=== PATIENT | female | born 1960 | race Caucasian/White ===

== ENCOUNTER → 2022-02-13 00:45 | Outpatient (CLI) | payer BC, SELFPAY ==
[2022-02-13 12:32] LABS: SARS-CoV-2 RNA PCR Negative
== END ==
PROVIDERS: PCP Internal Medicine; Visit Provider Obstetrics & Gynecology
DX: Z01.812 Encounter for preprocedural laboratory examination (principal); Z20.822 Contact with and (suspected) exposure to COVID-19
CPT/HCPCS: C9803; U0003; U0005

== ENCOUNTER 2022-02-14 08:17 | Outpatient (CLI) | payer BC, SELFPAY ==
--- NOTE | 2022-02-14 08:28 | ECG_ITS ---
Measurements Intervals [place] Rate: 80 P: 68 CO: 128 QRS: 65 QRSD: 90 T: -2 QT: 353 QTc: 407 Interpretive Statements SINUS RHYTHM BASELINE ARTIFACT BORDERLINE ECG NONSPECIFIC T-WAVE ABNORMALITY NO PREVIOUS ECG AVAILABLE FOR COMPARISON Electronically Signed On 02-14-2022 17:56:10 CDT by Max Perez M.D.
[2022-02-14 08:53] LABS: Basophils Absolute Auto 0.1 K/mm3 (0.0-0.1); Basophils Percent Auto 0.7 % (0.2-1.2); Eosinophils Absolute Auto 0.1 K/mm3 (0-0.3); Eosinophils Percent Auto 1.6 % (0-4.4); Hemoglobin 13.8 g/dL (12.0-15.0); Immature Granulocyte Absolute 0.02 K/mm3 (0.00-0.031); Immature Granulocyte Percent A 0.3 % (0-0.5); Lymphocytes Absolute Auto 1.82 K/mm3 (0.9-3.2); Lymphocytes Percent Auto 24.4 % (18.3-44.2); Mean Corpuscular HGB Conc 32.9 g/dl (32-36); Mean Corpuscular Hemoglobin 32.5 pg (26-34); Mean Corpuscular Volume 99.1 fl (80-100); Mean Platelet Volume 9.3 fl (7.4-10.4); Monocytes Absolute Auto 0.4 K/mm3 (0.1-0.6); Monocytes Percent Auto 4.7 % (2.6-8.5); Neutrophils Absolute Auto 5.1 K/mm3 (1.3-6.7); Neutrophils Percent Auto 68.3 % (45.5-73.1); Platelet Count Result 300 k/mm3 (150-375); Red Blood Count 4.24 M/mm3 (4.2-5.4); Red Cell Distribution Width 12.5 % (11.5-14.5); White Blood Count 7.5 K/mm3 (4.5-10.0)
== END 2022-02-14 08:18 | disposition home or self-care (01) ==
PROVIDERS: PCP Internal Medicine; Visit Provider Obstetrics & Gynecology
DX: N81.6 Rectocele (principal); E78.00 Pure hypercholesterolemia, unspecified
CPT/HCPCS: 36415; 85025; 86850; 86900; 86901; 93005

== ENCOUNTER 2022-02-16 01:15 | Day surgery (SDC) | payer BC, SELFPAY ==
[2022-02-13 15:19] VITALS: BMI 24.5
--- NOTE | 2022-02-13 16:00 | PC.NURSE ---
Report to the Outpatient Waiting Room, entrance under the green pavilion located off [facility], at 0600 on 02-16-22. OR Time: 0730. - You and your visitor will be asked a series of questions to screen for COVID 19 for your protection. - A mask is required within the hospital. Preoperative COVID Testing Requirements: No COVID Test needed if: (proof is required; if not received patient will have Rapid Test prior to entry) - Patient has received COVID Vaccine at least 14 days prior to procedure date or - Patient has positive COVID test result within last 90 days of surgery date. COVID Test needed if above criteria is not met If not COVID vaccinated a COVID test must be conducted within 72 hours of surgery and patient is asked to isolate self from time of testing until procedure. You will go to the [facility] for your COVID testing. The [facility] is located at the corner of [address] [facility]. You will only be called if COVID results are positive and your surgeon may reschedule your elective surgery date. 02-13-22 @ 0830 Patients may have clear liquids (water, carbonated beverages, clear teas, apple juice) until 3 hours prior to surgery with a maximum of 20 ounces. 0430 - No food from midnight until time of surgery - Infants may have breast milk until 4 hours before surgery, formula 6 hours prior to surgery. - Children will be allowed to drink immediately following surgery. If applicable, please bring a bottle or sippy cup to assist with drinking. Juice, water, soda, and popsicles are readily available. For infants on formula, please bring formula the day of surgery. Pacifiers are allowed. Take the following medications with a SIP of water the morning of surgery: Tylenol if needed; alprazolam if needed Medications to discontinue per physician: Vitamins and supplements; ibuprofen Date to take last dose: 02-14-22; per Dr. Suh Please no make-up, nail tunisian, hairspray, perfume, deodorant, or body powder the day of surgery. No jewelry (including any body piercings) or valuables the day of surgery, leave them at home. Please take a shower or bath the night before, or the morning of, surgery with an antibacterial soap. Wear comfortable, loose fitting clothing. Children are encouraged to wear pajamas. - Jewelry must be removed prior to entering the operating room. Rings and piercings that are not removed may be cut off. - The hospital will not accept responsibility for valuables. - Please leave all valuables, including medications, at home the day of surgery. If you are going home after surgery, a licensed passenger coach driver must drive you home. - NO public transportation without another adult. - We recommend that an adult stay with you for 24 hours following discharge. - We also recommend that you do not drive, make important decision, drink alcoholic beverages, or take any drugs that were not prescribed by your health care provider for at least 24 hours after your discharge time. For Pediatric surgeries, we recommend two adults accompany the child home (only one inside the building at this time). One visitor will be allowed to accompany the patient into the hospital. Patients visitor will be instructed to remain with patient at all times or leave the building. We will allow the visitor to come back to the postoperative area when patient is ready. Follow any additional instructions given to you from your surgeon. Telephone instructions given to Erica Michelle and asked if any additional questions and then verbalized understanding. Patient advised to call surgeon office or pre surgery nurse liaison [phone] if any additional questions.
--- NOTE | 2022-02-14 07:51 | PM.IMHP ---
H&P: HPI History of Present Illness Date/Time: 02/14/22 07:51 [age] year female status post hysterectomy for repair of rectocele. She felt a tearing sensation and has used fingers as splinting to bowel movements. Risks and benefits of this procedure reviewed in great detail. She had all questions answered asked to proceed Chief Complaint: Symptomatic rectocele Review of Systems Review of Systems: All systems reviewed & are unremarkable except as noted in HPI and below PMFSH Social History Social History Smoking packs per day: 0.75 Smoking cigarettes per day: 15.0 Years smoked: 20 Smoking pack-years: 15.00 Smoking status: Current every day smoker Tobacco type: cigarettes Second hand tobacco smoke exposure: No Alcohol intake: current Alcohol use details: beer occassionally/socially Substance use: former Substance use type: marijuana Spiritual care concerns: No Meds Home Medications and Allergies Home Medications Medication Instructions Recorded Confirmed Type acetaminophen [Tylenol] 650 mg PO Q6H PRN 02/13/22 02/13/22 History alprazolam 0.25 mg PO DAILY PRN 02/13/22 02/13/22 History ascorbic acid (vitamin C) 500 mg PO DAILY 02/13/22 02/13/22 History atorvastatin 10 mg PO HS 02/13/22 02/13/22 History cholecalciferol (vitamin D3) 125 mcg PO DAILY 02/13/22 02/13/22 History [Vitamin D3] ibuprofen 400 mg PO Q6H PRN 02/13/22 02/13/22 History gt-em-cxgo-FA-Ca carb-vit K 1 tablet PO DAILY 02/13/22 02/13/22 History [Women's Multivitamin] Allergies Allergy/AdvReac Type Severity Reaction Status Date / Time strawberry Allergy Intermediate Hives Verified 02/13/22 15:09 potato chips Allergy Intermediate Other Uncoded 02/13/22 15:09 Exam Const: General: no acute distress Eyes: General: appearance normal, both eyes and all related structures Neck: Neck: supple and no JVD Thyroid: thyroid normal Resp: Effort & Inspection: normal respiratory effort Auscultation: clear to auscultation bilaterally Cardio: Rate: regular rate Rhythm: regular rhythm GI: Inspection: non-distended GI Palp: Yes Soft to palpation, No Tenderness to palpation present (GI) and No Guarding due to palpation present (GI) Auscultation: normal bowel sounds : External Female Exam: normal external appearance Speculum Exam - Vagina: normal appearance of the vagina (Grade 2 rectocele noted) Speculum Exam - Cervix: Cervix absent Bimanual exam- vagina & uterus: uterus absent Bimanual Exam- Adnexa, other: normal adnexae Skin: General skin exam: no rashes or lesions noted Extrem: General: normal to inspection and no edema Psych: Mental Status: mental status grossly normal Affect: normal affect Assessment and Plan Additional Plan Impression: Rectocele Plan rectocele repair with posterior colporrhaphy
--- NOTE | 2022-02-15 11:37 | WPDANESEPPF ---
Anes - Initial Pre Proc Eval Procedure: Operation Date: 02/16/22 07:30 Proposed Procedures p Rectocele Repair - Jack Bernard MD Date/Time: 02/15/22 11:37 Surgeon: Jack Bernard MD Pre Op Diagnosis: rectocele Patient Data Age: 61 Gender: F Height: 1.57 m Weight: 60.78 kg Allergies Allergy/AdvReac Type Severity Reaction Status Date / Time strawberry Allergy Intermediate Hives Verified 02/16/22 06:27 potato chips Allergy Intermediate Other Uncoded 02/16/22 06:27 Home Medications Medication Instructions Recorded Confirmed Type acetaminophen [Tylenol] 650 mg PO Q6H PRN 02/13/22 02/16/22 History alprazolam 0.25 mg PO DAILY PRN 02/13/22 02/16/22 History ascorbic acid (vitamin C) 500 mg PO DAILY 02/13/22 02/16/22 History atorvastatin 10 mg PO HS 02/13/22 02/16/22 History cholecalciferol (vitamin D3) 125 mcg PO DAILY 02/13/22 02/16/22 History [Vitamin D3] ibuprofen 400 mg PO Q6H PRN 02/13/22 02/16/22 History ka-vz-ekry-FA-Ca carb-vit K 1 tablet PO DAILY 02/13/22 02/16/22 History [Women's Multivitamin] Patient hx anesthesia problems: none Family hx anesthesia problems: none Results Review: All pre-operative results and documents have been reviewed as part of the pre-operative evaluation. [facility] Past Medical History Medical History (Updated 02/15/22 @ 11:38 by Chalino Awad DO) Anxiety Endometriosis Hyperlipidemia Surgical History Surgical History (Updated 02/15/22 @ 11:38 by Chalino Awad DO) History of hysterectomy Social History Social History (Updated 02/16/22 @ 06:59 by Chalino Awad DO) Smoking packs per day: 0.75 Smoking cigarettes per day: 15.0 Years smoked: 40 Smoking pack-years: 30.00 Smoking status: Current every day smoker Tobacco type: cigarettes Second hand tobacco smoke exposure: No Alcohol intake: current Alcohol use details: beer occassionally/socially Substance use: former Substance use type: marijuana Living arrangements: with family Spiritual care concerns: No Anes - Eval Final PreProcedure Day of Procedure 02/15/22 11:37 Patient weight: normal Heart: regular rate and rhythm Lungs: clear to auscultation and normal air movement Airway: Mallampati scale class II Neurological: alert and oriented Last oral intake: >/= 8 hours ASA classification: III Emergent: no Anesthetic plan: proceed Anesthesia type and monitoring: general LMA and standard monitoring Results Review: All pre-operative results and documents have been reviewed as part of the pre-operative evaluation. Informed Consent: The patient's anesthetic plan and its attendant risks and benefits were discussed with the patient/family/POA. Questions were solicited and answers provided to the satisfaction of the patient/family/POA.
[2022-02-16] VITALS (9 sets, daily range): BP systolic 97–118; BP diastolic 54–75; PULSE 65–85; RESP 12–16; TEMP 36.2–36.5; O2SAT 97–100
[2022-02-16] MEDS: ACETAMINOPHEN 500 MG TABLET 1000 MG PO (06:33)
[2022-02-16] MEDS: LACTATED RINGERS 1,000 ML 30 ML IV CONT ×2 (06:57→08:54)
[2022-02-16] MEDS: KETOROLAC 15 MG/ML VIAL (*BKC) IV PUSH (06:57)
--- NOTE | 2022-02-16 07:18 | WPDHPUPDATE1 ---
History and Physical Update Update Date/Time: 02/16/22 07:18 History and Physical has been reviewed, including an updated exam of the patient. There are NO changes in the patient's condition. Risks, benefits, and alternatives have been discussed and questions answered. Patient agrees to proceed with procedure.
[2022-02-16] MEDS: ceFAZolin 2 GM/D5W 50 ML 2 GM/50 ML BAG IVPB (07:30)
--- NOTE | 2022-02-16 08:25 | W.PM.PROC2 ---
Procedure Note - Detailed Date of Procedure 02/16/22 Pre-op Diagnosis rectocele Post-op Diagnosis Same Procedure Performed Posterior repair Surgeon Jack Bernard MD Anesthesia General Findings 61 symptomatic rectocele Description of Procedure The patient was prepped draped sterile fashion placed dorsal lithotomy position. Under excellent LMA the perineum was grasped with 2 clamps. A linear incision was made in the perineum and the mucosa was undermined and sharply dissected up to top of the rectocele. There were many areas of vascularity the made for a bloody or that useful procedure however these were serially clamped burned and the lateral muscles were reached by sharp blunt dissection and reaching back and until to the top of the mucosal edema incision. Ruvwuy-ui-xhooi sutures were then placed in the muscles laterally and brought over the top of the bulging rectum. This was done from top to bottom in figure-eight fashion. The excess tissue was trimmed and the vagina closed with continuous running 0 Vicryl from superior to inferior portion strengthening the perineum the. Blood loss was estimated [id number]. The vagina was packed as it was the bloodier than normal of procedure although all pedicles appeared dry at the time of termination the procedure to procedure. All sponge needle instrument counts were correct. There were no complications Estimated Blood Loss 300 Drains No Packing Yes Pathology Yes Complications No immediate complications Condition Stable Disposition PACU
[2022-02-16] MEDS: fentaNYL CITRATE INJ (*CRX) 100 MCG/2 ML VIAL 25 MCG IV PUSH ×4 (08:53→09:09)
== END 2022-02-16 10:30 | disposition home or self-care (01) ==
PROVIDERS: PCP Internal Medicine; Visit Provider Obstetrics & Gynecology
PROC: (CPT 57260; principal; 2022-02-16 07:30)
DX: N81.6 Rectocele (principal); E78.5 Hyperlipidemia, unspecified; F41.9 Anxiety disorder, unspecified; F17.210 Nicotine dependence, cigarettes, uncomplicated
CPT/HCPCS: 57250; A9270; J0690; J1100; J1885; J2250; J2405; J2704; J3010; J7120

== ENCOUNTER 2022-06-27 06:44 | Outpatient (CLI) | payer BC, SELFPAY ==
--- NOTE | ~2022-06-27 | MR_ITS ---
EXAMINATION: MR abdomen wo/w con DATE: 06/27/2022 07:50 INDICATION: Adrenal mass TECHNIQUE: Magnetic resonance imaging (MRI) of the abdomen was performed without and with 12 mL Multi hilary intravenous contrast. Sequences included coronal and axial T2-weighted SS-FSE, axial FS 2D-FIES TA, coronal and axial dual-echo T1-weighted FSPGR, axial T1-weighted LAVA, and axial STIR FSE. Postco ntrast axial T1-weighted LAVA images were obtained in a time course. Postcontrast coronal T1-weighted LAVA images were obtained. COMPARISON: CT dated 08/13/2019 FINDINGS: This is normal. No pericardial or pleural effusion. 9 mm nonenhancing T2 hyperintense cyst in segment 2 of the liver. Also in segment 2 is a 1.3 cm T2 hyperintense hemangioma with characteristic lobular margins and peripheral discontiguous puddling of contrast which fills in on delayed imaging. Depende ntly layering sludge in the normal gallbladder. Unchanged small splenule anterior to the normal splee n. Pancreas, right kidney and left adrenal gland are normal. No interval change in size of a 5.6 x 4. 5 cm low signal intensity nonenhancing lesion in the region of the right adrenal gland corresponding to the calcified mass on prior CT. There are couple smaller T2 hyperintense nonenhancing cysts at the periphery of the mass, the larger measuring 1.8 x 0.8 cm and the smaller measuring 1.2 x 0.6 cm, bot h also with some associated rim calcification on prior CT. T2 hyperintense nonenhancing left renal cy sts, the largest measuring 2.8 cm with 3 additional subcentimeter cysts. Visualized portion of the magalie wels are unremarkable. No pathologically enlarged abdominal lymphadenopathy. Moderate lumbar spondylo sis. IMPRESSION: 1. No change in a likely benign 5.6 cm calcified right adrenal mass and a couple small rim calcified cysts at the periphery of the mass which likely represent sequela of old hematoma or less likely infe ction. 2. No significant change in the previously described indeterminate lesion in segment 2 of liver with MRI enhancement pattern diagnostic of hemangioma. Reviewed, dictated and finalized at location A. IMPRESSION: 1. No change in a likely benign 5.6 cm calcified right adrenal mass and a coupl e small rim calcified cysts at the periphery of the mass which likely represent sequela of old hematoma or less likely infection. 2. No significant change in the previously described indeterminate lesion in se gment 2 of liver with MRI enhancement pattern diagnostic of hemangioma.
== END 2022-06-27 06:45 | disposition home or self-care (01) ==
PROVIDERS: PCP Internal Medicine; Visit Provider Internal Medicine
DX: R19.09 Other intra-abdominal and pelvic swelling, mass and lump (principal)
CPT/HCPCS: 74183; A9577

== ENCOUNTER 2023-10-09 00:58 | Day surgery (SDC) | payer BC, SELFPAY ==
[2023-10-07 15:18] VITALS: BMI 26.4
--- NOTE | 2023-10-07 15:50 | PC.NURSE ---
Report to the Outpatient Waiting Room, entrance under the green pavilion located off [facility], at 0730 on 10-09-23. Planned Procedure Time: 0930. Time changes happen often and if your time is changed the preop area will call you the afternoon before. - You and your visitor will be asked to self-screen and do not enter if you have any COVID symptoms. - A mask is optional within the hospital at this time. Patients may have clear liquids (water, carbonated beverages, clear teas, apple juice) until 3 hours prior to surgery with a maximum of 20 ounces. 0630 - No food from midnight until time of surgery - Infants may have breast milk until 4 hours before surgery, formula 6 hours prior to surgery. - Children will be allowed to drink immediately following surgery. If applicable, please bring a bottle or sippy cup to assist with drinking. Juice, water, soda, and popsicles are readily available. For infants on formula, please bring formula the day of surgery. Pacifiers are allowed. Take the following medications with a SIP of water the morning of surgery: alprazolam and tylenol if needed DO NOT STOP ANY OF YOUR OTHER PRESCRIPTION MEDICATIONS PRIOR TO SURGERY EXCEPT THE FOLLOWING Medications to discontinue per physician: vitamins and supplements Date to take last dose: 10-07-23 Please no make-up, nail somali, hairspray, perfume, deodorant, or body powder the day of surgery. No jewelry (including any body piercings) or valuables the day of surgery, leave them at home. Please take a shower or bath the night before, or the morning of, surgery with an antibacterial soap. Wear comfortable, loose fitting clothing. Children are encouraged to wear pajamas. - Jewelry must be removed prior to entering the operating room. Rings and piercings that are not removed may be cut off. - The hospital will not accept responsibility for valuables. - Please leave all valuables, including medications, at home the day of surgery. If you are going home after surgery, a licensed inventory associate and driver must drive you home. - NO public transportation without another adult if you receive anesthesia. - We recommend that an adult stay with you for 24 hours following discharge. - We also recommend that you do not drive, make important decision, drink alcoholic beverages, or take any drugs that were not prescribed by your health care provider for at least 24 hours after your discharge time. For Pediatric surgeries, we recommend two adults accompany the child home. Follow any additional instructions given to you from your surgeon. If you or anyone in your household have experienced Covid symptoms in the past week, please notify your surgeon or the nurse liaison at the phone number below for possible testing. Telephone instructions given to Concepcion Catalan and asked if any additional questions and then verbalized understanding. Patient advised to call surgeon office or pre surgery nurse liaison [phone] if any additional questions.
--- NOTE | 2023-10-09 07:23 | WPDHPUPDATE1 ---
History and Physical Update Update Date/Time: 10/09/23 07:23 History and Physical has been reviewed, including an updated exam of the patient. There are NO changes in the patient's condition. Risks, benefits, and alternatives have been discussed and questions answered. Patient agrees to proceed with procedure.
[2023-10-09 07:45] VITALS: BP 112/72; PULSE 84; RESP 14; TEMP 36.2; O2SAT 100
[2023-10-09] MEDS: LACTATED RINGERS 1,000 ML 30 ML IV CONT (07:45)
--- NOTE | 2023-10-09 07:45 | WPDANESEPPF ---
Anes - Initial Pre Proc Eval Procedure: Operation Date: 10/09/23 09:30 Proposed Procedures p Excision Left Volar Wrist Ganglion Cyst - Abelardo Rao MD Date/Time: 10/09/23 07:45 Surgeon: Abelardo Rao MD Pre Op Diagnosis: Left Volar Wrist Ganglion Cyst Patient Data Age: 63 Gender: F Height: 1.55 m Weight: 63.4 kg Allergies Allergy/AdvReac Type Severity Reaction Status Date / Time strawberry Allergy Intermediate Hives Verified 10/07/23 15:15 potato chips Allergy Intermediate Other Uncoded 10/07/23 15:15 Home Medications Medication Instructions Recorded Confirmed Type acetaminophen 325 mg tablet 650 mg PO Q6H PRN Pain 02/13/22 10/07/23 History (Tylenol) alprazolam 0.25 mg tablet 0.25 mg PO DAILY PRN Anxiety 02/13/22 10/07/23 History ascorbic acid (vitamin C) 500 mg 500 mg PO DAILY 02/13/22 10/07/23 History tablet atorvastatin 10 mg tablet 10 mg PO HS 02/13/22 10/07/23 History cholecalciferol (vitamin D3) 125 125 mcg PO DAILY 02/13/22 10/07/23 History mcg (5,000 unit) tablet (Vitamin D3) pakvwbym-cld-sdnv 18 mg-FA 400 1 tablet PO DAILY 02/13/22 10/07/23 History mcg-calcium 500 mg-vit K 50 mcg tablet (Women's Multivitamin) Patient hx anesthesia problems: none Family hx anesthesia problems: none Results Review: All pre-operative results and documents have been reviewed as part of the pre-operative evaluation. [facility] Past Medical History Medical History Anxiety Endometriosis Hyperlipidemia Surgical History Surgical History History of hysterectomy Social History Social History Smoking packs per day: 0.5 Smoking cigarettes per day: 10.0 Years smoked: 30 Smoking pack-years: 15.00 Smoking status: Current every day smoker Tobacco type: cigarettes Second hand tobacco smoke exposure: No Alcohol intake: current Alcohol use details: sometimes drinks beer socially Substance use: never Substance use type: does not use Living arrangements: with family Spiritual care concerns: No Anes - Eval Final PreProcedure Day of Procedure 10/09/23 07:45 Patient weight: normal Heart: regular rate and rhythm Lungs: decreased breath sounds Airway: Mallampati scale class II Neurological: alert and oriented Last oral intake: >/= 8 hours ASA classification: II Emergent: no Anesthetic plan: proceed Anesthesia type and monitoring: general GIVS and standard monitoring Results Review: All pre-operative results and documents have been reviewed as part of the pre-operative evaluation. Informed Consent: The patient's anesthetic plan and its attendant risks and benefits were discussed with the patient/family/POA. Questions were solicited and answers provided to the satisfaction of the patient/family/POA.
[2023-10-09] MEDS: LIDO 1%/EPINEPHRINE 1:100,000 20 ML VIAL 10 ML INFILTRATE (08:23)
[2023-10-09 08:42] VITALS: BP 98/60; PULSE 86; RESP 14; O2SAT 94
--- NOTE | 2023-10-09 08:51 | P.OP_ITS ---
Procedure Note - Detailed Date of Procedure 10/09/23 Pre-op Diagnosis Left Volar Wrist Ganglion Cyst Post-op Diagnosis Same Procedure Performed Excision ganglion cyst left volar wrist Surgeon Abelardo Rao MD Product Marketing Coordinator Jeremiah Anesthesia MAC Findings Insist Description of Procedure The presenting mass was marked on the patient's wrist with her consent in the holding area. She was then taken to the operating room where she was placed barrios pine on the operating table. She was given IV sedation and the left upper extremity was prepped and draped in usual fashion. The site was carefully marked for the incision and locally infiltrated with 1% lidocaine with epinephrine. Extremity was exsanguinated tourniquet inflated to 250 mmHg. The incision was made as marked. Blunt dissection revealed vascular structures. When the appeared to be the artery. The cyst was readily identified as well. Careful blunt dissection for the most part was used to separate cyst from the vascular structures. Cautery was used where there were leaks. The cyst was dissected to its base at the radiocarpal joint in avulsed. The tourniquet was released pressure was held for about 2 minutes. The site then showed no further significant bleeding. The wound was closed with intradermal 4-0 Monocryl suture. The usual bandage was applied the tourniquet was released at 13 minutes. The patient was transferred from the operating room stable condition. She is being discharged instructions in wound care and follow-up. She has a prescription for coding 30 mg and acetaminophen 300 mg tablets# 4. Estimated Blood Loss 2 Tourniquet Time 13 Drains No Packing No Pathology None sent Complications No immediate complications Condition Stable Disposition Same day
[2023-10-09 09:10] VITALS: BP 117/68; PULSE 66; RESP 16
[2023-10-09 09:47] VITALS: BP 116/64; PULSE 70; RESP 14
== END 2023-10-09 09:40 | disposition home or self-care (01) ==
PROVIDERS: PCP Internal Medicine; Visit Provider Plastic Surgery
PROC: (CPT 25111; principal; 2023-10-09 09:30)
DX: M67.432 Ganglion, left wrist (principal); E78.5 Hyperlipidemia, unspecified; F41.9 Anxiety disorder, unspecified; F17.210 Nicotine dependence, cigarettes, uncomplicated
CPT/HCPCS: 25111; A9270; J2250; J2704; J3010; J7120

== ENCOUNTER 2024-05-14 14:20 | Emergency (ER) | payer BC, SELFPAY ==
[2024-05-14] VITALS (9 sets, daily range): BP systolic 102–130; BP diastolic 58–77; PULSE 61–94; RESP 14–19; TEMP 36.5; O2SAT 96–100
--- NOTE | ~2024-05-14 | XR_ITS ---
XR chest 2V Ordering provider: Michelle Fitzpatrick MD History: 63 years Female with . palpitations, occ CP, neuro sx's, CP OFF AND ON 4 TO 5 DAYS . Comparison: None. FINDINGS: MEDIASTINUM: The cardiac silhouette is not enlarged. LUNGS: No infiltrates, effusions or pneumothorax. OTHER: No free air under the diaphragm. Degenerative the spine. Calcified lesion in the right posterior paraspinal area. IMPRESSION: No acute cardiopulmonary pathology. Reviewed, dictated and finalized at location A.
--- NOTE | 2024-05-14 14:25 | ECG_ITS ---
Test Date: 2024-05-14 14:25:19 Measurements Intervals [place] Rate: 89 P: 71 [place]: 121 QRS: 68 QRSD: 89 T: -5 QT: 362 QTc: 442 Interpretive Statements SINUS RHYTHM WITH OCCASIONAL VENTRICULAR PREMATURE COMPLEXES ST-T WAVE ABNORMALITY IN ANTEROLAT/INF LEADS- CONSIDER ISCHEMIA BASELINE ARTIFACT- V4-V6 ABNORMAL ECG No previous ECG available for comparison Electronically Signed On 05-15-2024 14:08:14 CDT by Ajay Tarango D.O.
--- NOTE | 2024-05-14 14:25 | ED.ARRPALP ---
HPI - Arrhythmia/Palpitations General Chief Complaint: Arrhythmia/Palpitations Stated Complaint: heart racing, left arm/leg heavy x days Time Seen by Provider: 05/14/24 19:02 Focused HPI: 63-year-old female with a history dyslipidemia and anxiety presents to the emergency room for evaluation of the palpitations began 2 days ago. Denies any chest pain shortness of breath. Denies any dizziness or lightheadedness. States her brother recently unexpectedly, and has been taking xanax with initial symptom relief. GENERAL: Well-appearing, well-nourished, and in no acute distress. HEAD: Normocephalic, atraumatic. CHEST: Clear to auscultation. No respiratory distress. HEART: Regular rate and rhythm. NEURO: Alert and oriented x3. Patient screened in triage and initial orders placed. Additional care and disposition to be based upon diagnostic testing and treatment. Related Data Home Medications Medication Instructions Recorded Confirmed acetaminophen 325 mg tablet 650 mg PO Q6H PRN Pain 02/13/22 10/07/23 (Tylenol) alprazolam 0.25 mg tablet 0.25 mg PO DAILY PRN Anxiety 02/13/22 10/09/23 ascorbic acid (vitamin C) 500 mg 500 mg PO DAILY 02/13/22 10/07/23 tablet atorvastatin 10 mg tablet 10 mg PO HS 02/13/22 10/07/23 cholecalciferol (vitamin D3) 125 125 mcg PO DAILY 02/13/22 10/07/23 mcg (5,000 unit) tablet (Vitamin D3) [id number] 18 mg-FA 400 1 tablet PO DAILY 02/13/22 10/07/23 mcg-calcium 500 mg-vit K 50 mcg tablet (Women's Multivitamin) Allergies Allergy/AdvReac Type Severity Reaction Status Date / Time strawberry Allergy Intermediate Hives Verified 10/09/23 08:08 potato chips Allergy Intermediate Other Uncoded 10/09/23 08:08 PMFSH Past Medical History Medical History Anxiety Endometriosis Hyperlipidemia Surgical History Surgical History History of hysterectomy Social History Social History Smoking packs per day: 0.5 Smoking cigarettes per day: 10.0 Years smoked: 30 Smoking pack-years: 15.00 Smoking status: Current every day smoker Tobacco type: cigarettes Second hand tobacco smoke exposure: No Alcohol intake: current Alcohol use details: sometimes drinks beer socially Substance use: never Substance use type: does not use Living arrangements: with family Spiritual care concerns: No Course Vital Signs Vital signs: Vital Signs Temperature 36.5 C 05/14/24 14:23 Pulse Rate 94 05/14/24 14:23 Respiratory Rate 18 05/14/24 14:23 Blood Pressure 112/59 L 05/14/24 14:23 Pulse Oximetry 100 05/14/24 14:23 Temperature 36.5 C 05/14/24 14:23 Pulse Rate 68 05/14/24 20:12 Respiratory Rate 15 05/14/24 20:12 Blood Pressure 130/77 05/14/24 20:12 Pulse Oximetry 99 05/14/24 20:12 MDM - Arrhythmia/Palpitations Lab Data 05/14/24 14:31 05/14/24 14:31 Labs: Lab Results 05/14/24 05/14/24 Range/Units 14:31 17:28 WBC 8.6 (4.5-10.0) K/mm3 RBC 4.36 (4.2-5.4) M/mm3 Hgb 14.3 (12.0-15.0) g/dL Hct 42.3 (37.0-47.0) % MCV 97.0 (80-100) fl MCH 32.8 (26-34) pg MCHC 33.8 (32-36) g/dl RDW 11.9 (11.5-14.5) % Plt Count 294 (150-375) k/mm3 MPV 9.5 (7.4-10.4) fl Immature Gran % (Auto) 0.2 (0-0.5) % Neut % (Auto) 75.4 H (45.5-73.1) % Lymph % (Auto) 18.4 (18.3-44.2) % [place] % (Auto) 4.6 (2.6-8.5) % Eos % (Auto) 0.7 (0-4.4) % Baso % (Auto) 0.7 (0.2-1.2) % Lymph # (Auto) 1.57 (0.9-3.2) K/mm3 [place] # (Auto) 0.4 (0.1-0.6) K/mm3 Eos # (Auto) 0.1 (0-0.3) K/mm3 Baso # (Auto) 0.1 (0.0-0.1) K/mm3 Abs Immat Gran (auto) 0.02 (0.00-0.031) K/mm3 Absolute Neuts (auto) 6.5 (1.3-6.7) K/mm3 Absolute Nucleated RBC 0.000 (0.0-0.012) K/mm3 Nucleated RBC % 0.0 (0.0-0.2) %
[2024-05-14 14:36] LABS: Basophils Absolute Auto 0.1 K/mm3 (0.0-0.1); Basophils Percent Auto 0.7 % (0.2-1.2); Eosinophils Absolute Auto 0.1 K/mm3 (0-0.3); Eosinophils Percent Auto 0.7 % (0-4.4); Hematocrit 42.3 % (37.0-47.0); Hemoglobin 14.3 g/dL (12.0-15.0); Immature Granulocyte Absolute 0.02 K/mm3 (0.00-0.031); Immature Granulocyte Percent A 0.2 % (0-0.5); Lymphocytes Absolute Auto 1.57 K/mm3 (0.9-3.2); Lymphocytes Percent Auto 18.4 % (18.3-44.2); Mean Corpuscular HGB Conc 33.8 g/dl (32-36); Mean Corpuscular Hemoglobin 32.8 pg (26-34); Mean Platelet Volume 9.5 fl (7.4-10.4); Monocytes Absolute Auto 0.4 K/mm3 (0.1-0.6); Monocytes Percent Auto 4.6 % (2.6-8.5); Neutrophils Absolute Auto 6.5 K/mm3 (1.3-6.7); Neutrophils Percent Auto 75.4 % (45.5-73.1); Platelet Count Result 294 k/mm3 (150-375); Red Blood Count 4.36 M/mm3 (4.2-5.4); Red Cell Distribution Width 11.9 % (11.5-14.5); White Blood Count 8.6 K/mm3 (4.5-10.0)
[2024-05-14 14:49] LABS: Alanine Aminotransferase 14 U/L (6-35); Albumin Level 4.4 g/dL (3.5-5.1); Alkaline Phosphatase 68 U/L (38-126); Anion Gap 11 mmol/L (4-12); Aspartate Amino Transferase 19 U/L (14-36); Bilirubin,Total 0.4 mg/dL (0.2-1.3); Blood Urea Nitrogen 8 mg/dL (7-17); Calcium 9.2 mg/dL (8.4-10.2); Carbon Dioxide 26 mmol/L (22-30); Chloride 101 mmol/L (98-107); Estimated CRCL calculation 50 ml/min; Estimated Glomerular Filt Rate > 60; Glucose 165 mg/dL (65-110); Lipase 88 U/L (23-300); Potassium 3.4 mmol/L (3.4-5.0); Sodium 138 mmol/L (137-145)
[2024-05-14 14:50] LABS: Prothrombin Time 13.4 Seconds (11.1-14.7)
[2024-05-14 14:51] LABS: Partial Thromboplastin Time 25.4 Seconds (22.3-36.8)
[2024-05-14 15:00] LABS: Troponin I < 0.012 ng/mL (0.000-0.034)
--- NOTE | 2024-05-14 17:29 | ECG_ITS ---
Test Date: 2024-05-14 17:29:45 Measurements Intervals Walker Rate: 56 P: 35 UT: 103 QRS: 50 QRSD: 88 T: 9 QT: 391 QTc: 380 Interpretive Statements SINUS BRADYCARDIA BORDERLINE ST-T WAVE ABNORMALITY- INFERIOR LEADS BASELINE ARTIFACT- I, II, III, AVR, AVF BORDERLINE ECG No previous ECG available for comparison Electronically Signed On 05-14-2024 18:52:06 CDT by Ajay Tarango D.O.
[2024-05-14 18:02] LABS: Troponin I < 0.012 ng/mL (0.000-0.034)
--- NOTE | 2024-05-14 19:03 | ED.ARRPALP ---
HPI - Arrhythmia/Palpitations General Chief Complaint: Arrhythmia/Palpitations Stated Complaint: heart racing, left arm/leg heavy x days Time Seen by Provider: 05/14/24 19:02 Source: patient and family Mode of arrival: ambulatory Limitations: no limitations History of Present Illness HPI narrative: 63 YEARS OLD WHITE FEMALE CAME TO THE EMERGENCY ROOM BY PRIVATE CAR WITH AROUSABLE COMPLAINING OF INTERMITTENT CHEST PRESSURE, INTERMITTENT RIGHT UPPER AND RIGHT LOWER EXTREMITY NUMBNESS START MONTHS AGO. PATIENT IS TELLING ME THAT SHE IS A NERVOUS HE MIGHT BE, PATIENT HAD QUADRUPLE BYPASS OCTOBER THIS YEAR, FEW MONTHS LATER HER MOM , FEW MONTHS LATER HER BROTHER , PATIENT IS ANXIOUS AND WORRIED ABOUT HAVING SUDDEN AT ANY TIME. USED TO BE ON LORAZEPAM 0.25 NEEDED EVERY FEW DAYS, FOR THE LAST MONTH BEEN USING IT DAILY. PATIENT IS TELLING ME THAT SHE WOKE UP IN THE MIDDLE OF NIGHT AND CAN NOT GO BACK SLEEP BECAUSE SHE CANNOT STOP HER BRAIN ACTIVITIES. SHE DENIES ANY SUICIDAL OR HOMICIDAL IDEATION Related Data Home Medications Medication Instructions Recorded Confirmed acetaminophen 325 mg tablet 650 mg PO Q6H PRN Pain 02/13/22 10/07/23 (Tylenol) alprazolam 0.25 mg tablet 0.25 mg PO DAILY PRN Anxiety 02/13/22 10/09/23 ascorbic acid (vitamin C) 500 mg 500 mg PO DAILY 02/13/22 10/07/23 tablet atorvastatin 10 mg tablet 10 mg PO HS 02/13/22 10/07/23 cholecalciferol (vitamin D3) 125 125 mcg PO DAILY 02/13/22 10/07/23 mcg (5,000 unit) tablet (Vitamin D3) [id number] 18 mg-FA 400 1 tablet PO DAILY 02/13/22 10/07/23 mcg-calcium 500 mg-vit K 50 mcg tablet (Women's Multivitamin) Allergies Allergy/AdvReac Type Severity Reaction Status Date / Time strawberry Allergy Intermediate Hives Verified 10/09/23 08:08 potato chips Allergy Intermediate Other Uncoded 10/09/23 08:08 Review of Systems Review of Systems: All systems reviewed & are unremarkable except as noted in HPI and below PMFSH Past Medical History Medical History Anxiety Endometriosis Hyperlipidemia Surgical History Surgical History History of hysterectomy Social History Social History Smoking packs per day: 0.5 Smoking cigarettes per day: 10.0 Years smoked: 30 Smoking pack-years: 15.00 Smoking status: Current every day smoker Tobacco type: cigarettes Second hand tobacco smoke exposure: No Alcohol intake: current Alcohol use details: sometimes drinks beer socially Substance use: never Substance use type: does not use Living arrangements: with family Spiritual care concerns: No Exam Narrative: GENERAL APPEARANCE: WELL-DEVELOPED, WELL-NOURISHED SKIN: NORMAL COLOR HEAD: NORMOCEPHALIC, NONTRAUMATIC EYES: CLEAR CONJUNCTIVA ENT: OROPHARYNX NORMAL, EARS NORMAL, NOSE NORMAL NECK: SUPPLE, NONTENDER CHEST AND RESPIRATORY: AIRWAY PATENT, NO RESPIRATORY DISTRESS, NO ACCESSORY MUSCLE USE HEART: REGULAR RATE/RHYTHM ABDOMEN: SOFT, NONTENDER, NO ORGANOMEGALY, QUIET BOWEL SOUNDS VASCULAR: NORMAL PERIPHERAL PULSES, NORMAL CAPILLARY REFILL. 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
[2024-05-14 19:31] LABS: NT Pro B Type Natriuretic Pept < 20 pg/mL (19.9-100)
[2024-05-14] MEDS: LORazepam (*CRX) 0.5 MG TABLET 1 MG PO (19:52)
== END 2024-05-14 20:13 | disposition home or self-care (01) ==
PROVIDERS: Emergency Provider Emergency Medicine; PCP Internal Medicine
DX: F41.9 Anxiety disorder, unspecified (principal); E78.5 Hyperlipidemia, unspecified; I10 Essential (primary) hypertension; F17.210 Nicotine dependence, cigarettes, uncomplicated; Z90.710 Acquired absence of both cervix and uterus; Z79.899 Other long term (current) drug therapy; I49.3 Ventricular premature depolarization; R94.31 Abnormal electrocardiogram [ECG] [EKG]; R00.1 Bradycardia, unspecified
CPT/HCPCS: 36415; 71046; 80053; 83690; 83880; 84484; 85025; 85610; 85730; 93005; 99284; A9270

== ENCOUNTER 2024-06-24 09:55 | Outpatient (CLI) | payer BC, SELFPAY ==
--- NOTE | 2024-06-24 | EST_ITS ---
Patient Info Name: Erica Catalan Age: 63 years : 1960 Gender: Female Ht: 62 in Wt: 137 lbs BSA: 1.66 m2 HR: 64 bpm BP: 111 / 70 mmHg Exam Date: 06/24/2024 11:31 AM Exam Location: Echo Lab Patient Status: Outpatient Admit Date: 06/24/2024 Staff Ordering Physician: Rojas, Nitesh AMIN Attending Provider: Rojas, Nitesh AMIN Exercise Technologist: Christy Nava CT Exercise Physician: Ajay Tarango DO Exam Type: CA stress julio cesar w NM Study Info A regadenoson stress test was performed. Summary 1. 1. Abnormal lexiscan stress test for ischemic ST changes by ECG criteria. 2. 2. Stable hemodynamics throughout the test. 3. 3. Nuclear scan to follow and will be reported separately. Please correlate with it. 4. 4. Patient informed of the above results. Protocol: Lexiscan Stress ECG Details Stage: REST Duration (min): 1 min : 16 sec HR (bpm): 72 SBP (mmHg): 111 DBP (mmHg): 70 Stage: REST Duration (min): 11 min : 52 sec HR (bpm): 73 SBP (mmHg): 111 DBP (mmHg): 70 Stage: STAGE 1 Duration (min): 1 min : 0 sec HR (bpm): 103 SBP (mmHg): 114 DBP (mmHg): 89 Stage: RECOVERY Duration (min): 1 min : 0 sec HR (bpm): 110 SBP (mmHg): 114 DBP (mmHg): 89 Stage: RECOVERY Duration (min): 2 min : 0 sec HR (bpm): 105 SBP (mmHg): 114 DBP (mmHg): 89 Stage: RECOVERY Duration (min): 3 min : 0 sec HR (bpm): 100 SBP (mmHg): 130 DBP (mmHg): 80 Stage: RECOVERY Duration (min): 3 min : 8 sec HR (bpm): 98 SBP (mmHg): 130 DBP (mmHg): 80 Rest HR: 73 bpm Peak HR: 111 bpm Rest Sys BP: 111 mmHg Peak Sys BP: 130 mmHg Max Pred HR: 157 bpm % Max Pred HR: 71 % Target HR: 133 bpm Max RPP: 14,430 bpm*mmHg Termination Reason: Completed protocol Cardiac Symptoms: Shortness of breath Total Time: 1 min : 0 sec Rest Regalado BP: 70 mmHg Peak Regalado BP: 80 mmHg Total Dose: 0.4 mg Resting ECG Sinus rhythm. Stress ECG 1-[address] depression in leads V4-V6 and III, aVF. Arrhythmias none. Report Signatures
--- NOTE | ~2024-06-24 | NM_ITS ---
EXAMINATION: NM julio cesar stress w perfusion DATE: 06/24/2024 13:03 CDT INDICATION: Chest pain TECHNIQUE: Rest images were obtained following intravenous administration of 10.9 mCi Tc99m tetrofosm in (Myoview). The patient was infused intravenously with Lexiscan (regadenoson). Then, 33 mCi Tc99m t etrofosmin (Myoview) was administered intravenously, and stress images were obtained. Data was recons tructed into short axis and horizontal and vertical long axis SPECT images. Gated SPECT images were a lso obtained. COMPARISON: None. FINDINGS: There is no definite reversible or fixed perfusion abnormality to suggest ischemia or infar ction. There is no segmental wall motion abnormality. Left ventricular ejection fraction measures 4 5%. IMPRESSION: 1. No definite ischemia or infarct. 2. Global hypokinesis. Diminished left ventricular ejection fraction measuring 45%. Reviewed, dictated and finalized at location B.
== END 2024-06-24 09:56 | disposition home or self-care (01) ==
PROVIDERS: PCP Internal Medicine; Visit Provider Internal Medicine
DX: R07.9 Chest pain, unspecified (principal); R94.39 Abnormal result of other cardiovascular function study
CPT/HCPCS: 78452; 93017; A9502; J2785

== ENCOUNTER 2024-07-22 13:30 | Outpatient (CLI) | payer BC, SELFPAY ==
--- NOTE | 2024-07-22 | ECHO_ITS ---
Patient Info Name: Erica Catalan Age: 63 years : 1960 Gender: Female Ht: 61 in Wt: 136 lbs BSA: 1.64 m2 HR: 86 bpm BP: 134 / 75 mmHg Heart Rhythm: Sinus Rhythm Technical Quality: Good Exam Date: 07/22/2024 1:49 PM Exam Location: Echo Lab Patient Status: Outpatient Admit Date: 07/22/2024 Staff Ordering Physician: RojasNitesh MD Roll Operator: Sheri Jovel RDCS Attending Provider: DaraNitesh MD Exam Type: CA echo doppler color flow Study Info Indications R07.9 - Chest pain, unspecified Complete two-dimensional, color flow and Doppler transthoracic echocardiogram is performed. Summary 1. Complete two-dimensional, color flow and Doppler transthoracic echocardiogram is performed. 2. Left ventricular chamber dimension is normal. 3. Left ventricular systolic function is normal, estimated at 60-65%. 4. The left ventricular diastolic function is normal. 5. E/e' 6 is not elevated. 6. There is trace tricuspid valve regurgitation. 7. No pulmonary hypertension, estimated pulmonary arterial systolic pressure is 18 mmHg. Left Ventricle E/e' 6 is not elevated. Left ventricular chamber dimension is normal. Left ventricular systolic function is normal, estimated at 60-65%. The left ventricular diastolic function is normal. Right Ventricle Right ventricular systolic function is normal and with normal TAPSE 2.0 cm. Right ventricular chamber dimension is normal. Left Atria Left atrial chamber dimension is normal. Right Atria Right atrial chamber dimension is normal. Aortic Valve The aortic valve is trileaflet. There is no aortic valve stenosis. There is no aortic valve regurgitation. Pulmonic Valve There is no pulmonic regurgitation. Mitral Valve There is no mitral valve stenosis. There is no mitral valve regurgitation. Tricuspid Valve No pulmonary hypertension, estimated pulmonary arterial systolic pressure is 18 mmHg. There is trace tricuspid valve regurgitation. Pericardium/Pleural There is no pericardial effusion. Inferior Vena Cava Normal inferior vena cava with >50% collapse upon inspiration consistent with normal right atrial pressure, 5 mmHg. Aorta The aortic root size at the sinus of Valsalva is normal. Left Ventricular Outflow Tract Name Value Normal LVOT Doppler LVOT Peak Gradient 3 mmHg LVOT Mean Gradient 1 mmHg LVOT VTI 17 cm LVOT VTI/AV VTI Ratio 0.7 Pulmonic Valve Name Value Normal RVOT Doppler RVOT Peak Gradient 2 mmHg PV Doppler PV Peak Gradient 3 mmHg Mitral Valve Name Value Normal MV Doppler MV Decel [place] 2
== END 2024-07-22 13:31 | disposition home or self-care (01) ==
LOC: ANHCARD 13:32
PROVIDERS: PCP Internal Medicine; Visit Provider Internal Medicine
DX: R07.9 Chest pain, unspecified (principal)
CPT/HCPCS: 93306

== ENCOUNTER 2025-08-26 07:10 | Outpatient (CLI) | payer BC, SELFPAY ==
--- NOTE | ~2025-08-26 | US_ITS ---
ULTRASOUND ABDOMEN LIMITED (RIGHT UPPER QUADRANT) Clinical History: Abn findings on diag imaging Comparison: CT abdomen pelvis 08/03/2019 MR abdomen 06/27/2022 Technique: Right upper quadrant sonography Findings: Liver: Normal size. Normal echotexture. No intrahepatic biliary ductal dilatation. Normal hepatopedal flow main portal vein. Previously noted probable hemangioma not seen. Common Duct: Normal caliber. 4 mm. Gallbladder: No stones. No wall thickening. No pericholecystic fluid. Pancreas: Unremarkable. Large calcification hepatorenal space as before most likely adrenal. IMPRESSION: 1. No acute findings. Reviewed, dictated and finalized at location R. IMPRESSION: 1. No acute findings.
== END 2025-08-26 07:11 | disposition home or self-care (01) ==
PROVIDERS: PCP Internal Medicine; Visit Provider Internal Medicine
DX: R93.89 Abnormal findings on diagnostic imaging of other specified body structures (principal)
CPT/HCPCS: 76705